=== PATIENT | female | born 2000 | race Caucasian/White ===

== ENCOUNTER 2022-12-25 09:25 | Emergency (ER) | payer OTHER ==
[~2022-12-25] VITALS: Ht 154.9 cm; Wt 63.6 kg
[2022-12-25] MEDS ORDERED: KETOROLAC 60MG 2ML VIAL IM ONE (13:30)
[2022-12-25] MEDS ORDERED: LIDOCAINE 5% (LIDODERM) PATCH TD ONE (13:30)
[2022-12-25] MEDS ORDERED: methocarbamoL 750 MG TAB PO ONE (13:30)
[2022-12-25] MEDS ORDERED: METH-1165 PO (14:11)
[2022-12-25] MEDS ORDERED: ASPE4PAD TOP (14:11)
[2022-12-25] MEDS ORDERED: NAPR-837 PO (14:11)
[2022-12-25 14:22] VITALS: BP 129/64
== END 2022-12-25 14:25 | disposition home or self-care (01) ==
LOC: M ED 09:25 → EDBD 09:25 → M ED 14:25
DX: S50.01XA Contusion of right elbow, initial encounter (principal); M54.50 Low back pain, unspecified; W18.39XA Other fall on same level, initial encounter; Y92.138 Other place on military base as the place of occurrence of the external cause; Y99.1 Military activity
CPT/HCPCS: 72110; 96372; 99283; J1885